=== PATIENT | male | born 1950 | race Two or more races ===

== ENCOUNTER 2024-05-17 18:38 | Emergency (ER) | payer MEDICARE, MEDICAID, SELFPAY ==
[2024-05-17 19:06] VITALS: BP 167/86; PULSE 89; RESP 17; TEMP 37.2; O2SAT 95
--- NOTE | 2024-05-17 19:06 | PD.EDADULT ---
ED General RME/HPI General Stated complaint: FALL Time Seen by Provider: 05/17/24 19:05 Arrival date/time: 05/17/24 18:38 RME / HPI RME / HPI narrative: 73-year-old male patient was brought in by EMS for evaluation regarding bruising to the right arm. Patient sustained a fall last week, seen by PCP, and was told that he had a broken humerus. Patient is scheduled to see an orthopedic surgeon next Monday. Patient is currently not taking blood thinner. Patient was having a shower and noticed some bruising to the right arm. Patient is able to bend and extend the elbow and the wrist without any difficulty. Denies any other complaints Related Data Home Medications ?Medication ?Instructions ?Recorded ?Confirmed cetirizine 10 mg tablet 5 mg PO QDAY PRN 05/18/18 05/18/18 ranitidine HCl 150 mg tablet 150 mg PO QPM 05/18/18 05/18/18 timolol maleate 0.25 % eye drops 1 drop ophthalmic (eye) BID 05/18/18 05/18/18 Allergies Allergy/AdvReac Type Severity Reaction Status Date / Time No Known Allergies Allergy Verified 09/02/22 12:40 Review of Systems Review of Systems Narrative Review of Systems: Review of system reviewed and within normal limits except mentioned in HPI ED Exam Narrative Physical exam: VITAL SIGNS: Reviewed. GENERAL APPEARANCE: Alert and interactive, follows commands, no acute distress, HEAD AND FACE: Non-traumatic. ENT: PERRL, pink conjunctivitis, eyelid no trauma, Mucous membrane moist. NECK: Supple, nontender, no nuchal rigidity. CHEST: No tenderness, no crepitus, no paradoxical movement, no retractions. LUNGS: Clear, well ventilated, symmetric, no rales, no wheezing, no ronchi, no stridor, good breath sounds bilaterally. HEART: Regular rate, regular rhythm, no murmur, no gallops. ABDOMEN: Soft, positive bowel sounds, nondistended, no guarding, nontender, no rebound, no masses, RECTAL: Deferred. GENITAL: Deferred. NEUROLOGICAL: Gross motor function intact sensory function intact, Appropriate for age. MUSCULOSKELETAL: low back nontender, full range of motion. EXTREMITIES: Bruising noted to the right arm, slightly swollen, with tenderness, full range of motion of the elbow and wrist, radial and ulnar pulses +2 on the right. SKIN: Color pink, dry, no rash, no lacerations, no abrasions, no contusions. LYMPHATICS: Deferred. Course Quality Measures none MDM Patient data External records reviewed:: None Clinical information provided by:: patient Social determinants that could affect healthcare access:: none Patient has the following chronic illnesses:: None How is presenting disease/condition affected by chronic disease/condition?: no chronic disease Evaluation data The following diagnostics were reviewed and interpreted by me:: lab results and radiology exam(s) Lab and/or radiology exams considered but not ordered:: None Interpretation Summary: None Medications Medications considered but not ordered:: None Medication administrations:: None Consultations Consultation(s) initiated? (list below): No Diagnosis Differential Diagnosis ED Complaint MDM: Bruising, swelling, secondary to humeral fracture Most likely diagnosis given after review of the tests above:: Bruising secondary to humeral fracture Admission Indicated Admission indicated?: not indicated Explain why admission is indicated or not indicated:: Stable Admission Request Was there a request for admission?: No Disposition Plan Disposition Plan: Discharge Discharge Attestation Discharge Attestation: The patient WAS given an opportunity to ask questions and understood the discharge instructions. Discharge instructions specifically effects, indications for sooner follow up or return to the emergency department, and the expected course of current diagnosis. Patient condition: Stable Medical Decision Making MDM Narrative MDM Narrative: 73-year-old male patient was brought in by EMS for evaluation regarding bruising to the right arm. Patient sustained a fall last week, seen by PCP, and was told that he had a broken humerus. Patient is scheduled to see an orthopedic surgeon next Monday. Patient is currently not taking blood thinner. Patient was having a shower and noticed some bruising to the right arm. Patient is able to bend and extend the elbow and the wrist without any difficulty. Denies any other complaints Imaging or workup is not needed at this time, patient's bruising is secondary to humeral fracture. Patient is already seen by PCP and for final disposition with orthopedic surgeon this coming Monday. Currently on arm sling. Patient appears nontoxic and hemodynamically stable. Patient discharged home and instructed to follow-up with primary care provider in 24 to 48 hours. Instructed to return to the emergency department immediately if worsening of symptoms Differential Diagnosis Differential Diagnosis: Bruising, swelling, secondary to humeral fracture Discharge Plan Plan Patient Disposition: HOME (Self Care) Disposition Comment: Stable Prescriptions/Referrals Prescriptions/Med Rec: No Action cetirizine 10 mg tablet 5 mg PO QDAY PRN timolol maleate 0.25 % drops 1 drop OPHTHALMIC BID ranitidine HCl 150 mg tablet 150 mg PO QPM Problem List Clinical Impression: Arm bruise, Humeral fracture Patient/Caregiver Discharge Instructions Education Materials: Bruises (Contusions) Additional Instructions: Thank you for the opportunity for serving you today. You are stable for discharged . You are advised to: Follow-up with your PCP in 1 to 2 days Return to ED for worsening of symptoms Increase oral fluids Wear your arm sling all the time Your bruising is secondary to your fracture of the humerus Print Language: Indonesian Stand Alone Forms: [facility] Award Info., Patient Portal Info Letter PA/GOZNALO Supervising Physician NELA/GONZALO Supervising Physician: MD Kirill
[2024-05-17 19:08] VITALS: BP 149/84; PULSE 88; PULSE 90; RESP 18; RESP 20; TEMP 36.8; O2SAT 96; O2SAT 98; BMI 28.5
== END 2024-05-17 19:35 | disposition home or self-care (01) ==
LOC: SERX 21:09
PROVIDERS: Emergency Provider Emergency Medicine
DX: S42.301A Unspecified fracture of shaft of humerus, right arm, initial encounter for closed fracture (principal); W19.XXXA Unspecified fall, initial encounter
CPT/HCPCS: 99281

== ENCOUNTER 2024-05-19 23:58 | Emergency (ER) | payer MEDICARE, MEDICAID, SELFPAY ==
[2024-05-20 00:29] VITALS: BP 142/82; PULSE 82; RESP 18; TEMP 37.3; O2SAT 96
--- NOTE | 2024-05-20 00:41 | PD.EDRME ---
Rapid Medical Screening Exam E Arrival date/time: 05/19/24 23:58 73-year-old male with past medical history of glaucoma presents emergency department complaining of intermittent tunnel vision of left eye, pain to right shoulder from recent fall, and fear that he is unable to care for himself at home. Chief Complaint: General Adult/Misc Complain Time Seen by Provider: 05/20/24 00:33 Vital signs: Vital Signs Temperature 99.1 F 05/20/24 00:29 Pulse Rate 82 05/20/24 00:29 Respiratory Rate 18 05/20/24 00:29 Blood Pressure 142/82 H 05/20/24 00:29 Pulse Oximetry (%) 96 05/20/24 00:29 Oxygen Delivery Method Room Air 05/20/24 00:29 Vital signs reviewed by provider: Yes
--- NOTE | 2024-05-20 00:42 | XR_ITS ---
Examination: Duplex scan of the upper extremity, unilateral right Date and time of exam: May 23, 2024 0138 hrs. Indications: Right arm swelling and pain post fracture of the arm on May 14, 2024 Technique: Duplex scan of the extremity veins using B-mode/grayscale imaging and Doppler spectral analysis and color flow Attention is directed to internal echogenicity, compression and augmentation involving these veins, color flow assessment, spectral analysis Findings: Limited study, unable to assess axillary cephalic brachial and basilic veins Jugular, subclavian, radial and ulnar veins are open Impression: Limited study with no DVT demonstrated
[2024-05-20 00:44] VITALS: BMI 28.5
--- NOTE | 2024-05-20 02:22 | PRELIM_ITS ---
Right upper extremity venous Doppler ultrasound with wave Doppler spectral analysis. May 20, 2024 at 0138 hours Clinical history: Rule out deep vein thrombosis. Technique: Duplex scan of the right arm performed utilizing, 2D grayscale imaging, Doppler spectral analysis and color flow Doppler with compression. Comparison: No prior study is available for comparison. Findings: Limited study. The internal jugular vein is patent and compressible. The brachiocephalic vein is patent. The subclavian vein is patent. The axillary and brachial veins are patent and demonstrate good compression and augmentation. The cephalic and basilic veins are patent and demonstrate good compression. No evidence of thrombosis. Impression: No evidence of venous thrombosis in the right upper extremity. Report Electronically Signed By: Jh Viera 05/20/2024 2:22:31 AM [EST]
--- NOTE | 2024-05-20 03:51 | EDNOTE_ITS ---
ED General RME/HPI General Chief complaint: General Adult/Misc Complain Stated complaint: BLINDNESS Time Seen by Provider: 05/20/24 00:33 Arrival date/time: 05/19/24 23:58 RME / HPI RME / HPI narrative: 05/19/24 23:58 73-year-old male with past medical history of glaucoma presents emergency department complaining of intermittent tunnel vision of left eye, pain to right shoulder from recent fall, and fear that he is unable to care for himself at home. ------ Dr. Roy?s Main ED Evaluation: 73yo male with a history of glaucoma presents to the ED for a chief complaint of intermittent tunnel vision of the left eye. Patient states he was watching the football game today, reporting he felt his vision in his left eye was slowly beginning to get worse. He states over 3 hours, he was concerned due to the vision in his left eye getting worse and was concerned, so he came in for evaluation. He denies any other associated symptoms. No known allergies. Related Data Home Medications ?Medication ?Instructions ?Recorded ?Confirmed cetirizine 10 mg tablet 5 mg PO QDAY PRN 05/18/18 ranitidine HCl 150 mg tablet 150 mg PO QPM 05/18/18 timolol maleate 0.25 % eye drops 1 drop ophthalmic (ey e) BID 05/18/18 05/18/18 Allergies Allergy/AdvReac Type Severity Reaction Status Date / Time No Known Allergies Allergy Verified 05/20/24 00:04 Review of Systems Review of Systems Systems Reviewed: All systems reviewed, normal except as documented ED Exam Narrative Physical exam: GENERAL APPEARANCE: alert and oriented x 4, well-developed, well-nourished, no acute distress VITALS: All vitals were reviewed and the pulse ox is 96% on room air, which is normal according to my interpretation. HEENT: Normocephalic, atraumatic; opaque right cornea; no scleral injection, tearing, periorbital erythema, proptosis, or cloudiness of the left cornea; mucous membranes pink, moist; oropharynx clear NECK: Supple LUNGS: CTABL; no wheezes, no rales, no rhonchi HEART: Regular rate, regular rhythm; normal S1, S2; no murmurs ABDOMEN: non distended; normal BS; soft, no tenderness, no guarding, no rebound; no masses, no organomegaly, no hernia BACK: no CVA tenderness EXTREMITIES: atraumatic; no edema NEUROLOGIC: awake; alert and oriented x4; cranial nerves II-XII grossly intact; no focal sensory or motor deficits PSYCHIATRIC: appropriate mood and affect SKIN: warm, dry, normal color; no rashes Course Quality Measures none Orders Category Date Time Status US venous doppler UE RT Stat Exams 05/20/24 00:42 Taken Referral Accessibility Lift Technician NOW 05/20/24 00:42 Active Vital Signs Vital signs: Vital Signs Temperature 99.1 F 05/20/24 00:29 Pulse Rate 82 05/20/24 00:29 Respiratory Rate 18 05/20/24 00:29 Blood Pressure 142/82 H 05/20/24 00:29 Pulse Oximetry (%) 96 05/20/24 00:29 Oxygen Delivery Method Room Air 05/20/24 00:29 [facility] Patient data External records reviewed:: [facility] previous records (Per chart review, patient was seen here on 09/02/22 for blurry vision.) Clinical information provided by:: patient Social determinants that could affect healthcare access:: none Patient has the following chronic illnesses:: glaucoma How is presenting disease/condition affected by chronic disease/condition?: uneffected by Evaluation data The following diagnostics were reviewed and interpreted by me:: radiology exam(s) Lab and/or radiology exams considered but not ordered:: none Interpretation Summary: Telerad Preliminary Report Draft Patient: IQRA HYATT Record#: [id number] Birthdate: 1950 Age/Sex: 73 / M Location: [facility] Attending Dr: Ordering Physician: Date of Service: Procedure(s): Accession Number(s): cc: ~ Right upper extremity venous Doppler ultrasound with wave Doppler spectral analysis. May 20, 2024 at 0138 hours Clinical history: Rule out deep vein thrombosis. Technique: Duplex scan of the right arm performed utilizing, 2D grayscale imaging, Doppler spectral analysis and color flow Doppler with compression. Comparison: No prior study is available for comparison. Findings: Limited study. The internal jugular vein is patent and compressible. The brachiocephalic vein is patent. The subclavian vein is patent. The axillary and brachial veins are patent and demonstrate good compression and augmentation. The cephalic and basilic veins are patent and demonstrate good compression. No evidence of thrombosis. Impression: No evidence of venous thrombosis in the right upper extremity. Report Electronically Signed By: Jh Viera 05/20/2024 2:22:31 AM Medications Medications considered but not ordered:: none Medication administrations:: see below Consultations Consultation(s) initiated? (list below): No Diagnosis Differential Diagnosis ED Complaint MDM: anxiety reaction, vitreous hemorrhage, atypical migraine Most likely diagnosis given after review of the tests above:: see below Admission Indicated Admission indicated?: not indicated Explain why admission is indicated or not indicated:: Admission criteria not met. Admission Request Was there a request for admission?: No Disposition Plan Disposition Plan: Discharge Discharge Attestation Discharge Attestation: The patient and all family members were given an opportunity to ask questions and understood the discharge instructions. Discharge instructions specifically effects, indications for sooner follow up or return to the emergency department, and the expected course of current diagnosis. Patient condition: Stable Medical Decision Making MDM Narrative MDM Narrative: Scribe Attestation: 05/20/24 Cornelia Morrison am scribing for and in the presence of Dr. Roy. Differential Diagnosis Differential Diagnosis: anxiety reaction, vitreous hemorrhage, atypical migraine Discharge Plan Plan Patient Disposition: HOME (Self Care) Disposition Comment: Stable for discharge Patient condition on transfer: Stable Prescriptions/Referrals Prescriptions/Med Rec: No Action cetirizine 10 mg tablet 5 mg PO QDAY PRN timolol maleate 0.25 % drops 1 drop OPHTHALMIC BID ranitidine HCl 150 mg tablet 150 mg PO QPM Referrals: Sissy Mccarthy MD [Primary Care Provider] - In 1 week Problem List Clinical Impression: Anxiety reaction Patient/Caregiver Discharge Instructions Discharge Activity: activity as tolerated Education Materials: Boosting Your Mental Health, ED Anxiety Reaction Additional Instructions: Please return to the emergency department if you have any worsening or any further medical problems. Otherwise you should follow-up with your ophtha lmologist at your earliest convenience. If you feel like you are worsening in any way please feel free to return to the ER and we will help you Print Language: Vietnamese Stand Alone Forms: [facility] Award Info., Patient Portal Info Letter
[2024-05-20 04:01] VITALS: BP 136/92; PULSE 89; RESP 19; TEMP 37.1; O2SAT 99
== END 2024-05-20 05:22 | disposition home or self-care (01) ==
PROVIDERS: Emergency Provider Emergency Medicine; PCP Family Medicine
DX: F41.1 Generalized anxiety disorder (principal); M25.511 Pain in right shoulder
CPT/HCPCS: 93971; 99284

== ENCOUNTER → 2024-07-15 | Outpatient (CLI) | payer MEDICARE, MEDICAID, SELFPAY ==
--- NOTE | 2024-07-15 13:38 | XR_ITS ---
Examination: Shoulder,right, 3 views Technique: Shoulder AP internal rotation, AP external rotation, Y view shoulder, 3 views Exam date and time :July 1628 hrs. Indications: Postop reduction internal fixation fracture humerus Findings: Partial healing fracture proximal shaft humerus with abundant callus Fracture line is still partially visible Impression: Partial healing fracture proximal humerus with satisfactory alignment
--- NOTE | 2024-07-15 14:44 | XR_ITS ---
Examination: Humerus 2 views right Technique: Humerus, AP lateral 2 views Date and time of exam: July 15, 2024 1628 hrs. Indications: History humerus fracture Findings: Partial healing fracture proximal humeral shaft Satisfactory alignment Orthopedic hardware satisfactory position Impression: Partial healing fracture proximal humeral shaft with satisfactory alignment
== END | disposition home or self-care (01) ==
LOC: SDIM 13:23
PROVIDERS: PCP Family Medicine; Referring Provider Nurse Practitioner Family; Visit Provider Nurse Practitioner Family
DX: S42.301A Unspecified fracture of shaft of humerus, right arm, initial encounter for closed fracture (principal); X58.XXXA Exposure to other specified factors, initial encounter
CPT/HCPCS: 73030; 73060